=== PATIENT | male | born 1995 | race Caucasian/White ===

== ENCOUNTER 2017-05-24 11:25 | Emergency (ER) | payer SELFPAY ==
[2017-05-24] MEDS ORDERED: Ketorolac 30 MG/ML SDV IVPUSH ONE (11:38)
[2017-05-24] MEDS ORDERED: Ondansetron 4 MG/2 ML SDV IVPUSH ONE (11:38)
[2017-05-24] MEDS ORDERED: Sodium Chloride 0.9% 2.5 ML Syringe FLUSH PRN (11:38)
[2017-05-24] MEDS ORDERED: HYDROmorphone 2 MG/ML Syringe IVPUSH ONE (11:38)
[2017-05-24] MEDS ORDERED: Sodium Chloride 0.9% 10 ML Syringe FLUSH PRN (11:38)
[2017-05-24] MEDS ORDERED: Sodium Chloride 0.9% 1,000 ML IV ONE (11:38)
--- NOTE | 2017-05-24 11:42 | EDM.PDOC ---
ED HPI GENERAL MEDICAL PROBLEM - General Chief Complaint: Flank Pain Stated Complaint: LEFT SIDE ABDOMINAL PAIN Time Seen by Provider: 05/24/17 11:30 - History of Present Illness INITIAL COMMENTS - FREE TEXT/NARRATIVE: HISTORY AND PHYSICAL: History of present illness: The patient is a 22-year-old male without any GI or history and presents with complaints of left-sided abdominal pain/flank pain that started this morning after he woke up. According to the patient had a completely normal day yesterday with no abdominal issues no urinary issues no fevers or chills but he does state that he has had some sinus drainage and congestion. Patient says he woke at his usual time this morning and started experiencing the discomfort in the left lower abdominal area and now it's radiating to his flank. He had no hematuria or dysuria this morning. He has not had a bowel movement today but his bowel movement yesterday was normal. Patient has no testicular pain or swelling and denies STD risks. The patient describes the pain is deep aching and sharp at times and there is no right-sided pain. Patient did not take anything for the pain prior to coming here and he denies any recent trauma or strenuous activity. He has not been coughing or having any rib pain. The patient did have 3 episodes of vomiting prior to coming here which was clear consistent with the water he tried to drink and it was not black bloody or bilious Review of systems: As per history of present illness and below otherwise all systems reviewed and negative. Past medical history: As per history of present illness and as reviewed below otherwise noncontributory. Surgical history: As per history of present illness and as reviewed below otherwise noncontributory. Social history: No reported history of drug or alcohol abuse. Family history: As per history of present illness and as reviewed below otherwise noncontributory. Physical exam: Gen.: Well-developed overweight male who is nontoxic and moves easily in the ED but looks uncomfortable. Vital signs of the note by me. HEENT: Atraumatic, normocephalic, pupils reactive, negative for conjunctival pallor or scleral icterus, mucous membranes tacky, throat clear, neck supple, nontender, trachea midline. Lungs: Clear to auscultation, breath sounds equal bilaterally, chest nontender. Heart: S1S2, regular rate and rhythm no overt murmurs Abdomen: Soft, nondistended, nontender. The patient has no rebound or guarding but there is tympany on percussion of the upper abdomen. On palpation I cannot elicit the tenderness that the patient is experiencing but he does say that he feels some pressure. Negative for masses or hepatosplenomegaly. Negative for costovertebral tenderness. Pelvis: Stable nontender. Genitourinary: Deferred. Rectal: Deferred. Extremities: Atraumatic, negative for cords or calf pain. Neurovascular unremarkable. Neuro: Awake, alert, oriented. Cranial nerves II through XII unremarkable. Cerebellum unremarkable. Motor and sensory unremarkable throughout. Exam nonfocal. Diagnostics: CBC CMP lipase UA urine culture CT scan of the abdomen and pelvis Therapeutics: IV fluids Zofran Toradol Dilaudid Flomax urine strainers to patient Patient is sleeping when I went in to talk to him about his test results. He is aware of need to follow-up with our urologist and I given medications for pain nausea and Flomax. Advised him on reasons to return to the ED. Impression: Left distal ureteral stone Definitive disposition and diagnosis as appropriate pending reevaluation and review of above. Left Flank Pain Score (Numeric/FACES): 10 - Related Data Allergies Allergy/AdvReac Type Severity Reaction Status Date / Time cefaclor [From Ceclor] Allergy Other Verified 05/24/17 11:29 Penicillins Allergy Rash Verified 05/24/17 11:29 Home Meds: Home Meds Albuterol [Proventil Neb Soln] 0.63 mg NEB ASDIRECTED PRN 05/24/17 [History] Past Medical History Respiratory History: Reports: Asthma Social & Family History - Tobacco Use Smoking Status *Q: Current Every Day Smoker Years of Tobacco use: 7 Packs/Tins Daily: 0.5 - Caffeine Use Caffeine Use: Reports: Soda - Recreational Drug Use Recreational Drug Use: No ED ROS GENERAL - Review of Systems Review Of Systems: ROS reveals no pertinent complaints other than HPI. ED EXAM, GENERAL - Physical Exam Exam: See Below (See dictation) Course - Vital Signs Last Recorded V/S: Last Vital Signs Temp 36.0 C 05/24/17 12:00 Pulse 102 H 05/24/17 12:00 Resp 18 05/24/17 12:00 BP 148/64 H 05/24/17 12:00 Pulse Ox 97 05/24/17 12:00 - Orders/Labs/Meds Orders: Active Orders 24 hr Category Date Time Status Communication Order [RC] STAT Care 05/24/17 13:13 Ordered CULTURE URINE [RM] Stat Lab 05/24/17 11:55 Received Sodium Chloride 0.9% [Saline Flush] Med 05/24/17 11:38 Active 10 ml FLUSH ASDIRECTED PRN Sodium Chloride 0.9% [Saline Flush] Med 05/24/17 11:38 Active 2.5 ml FLUSH ASDIRECTED PRN Saline Lock Insert [OM.PC] Stat Oth 05/24/17 11:38 Ordered Medication Orders Sodium Chloride (Saline Flush) 10 ml FLUSH ASDIRECTED PRN PRN Reason: Keep Vein Open Sodium Chloride (Saline Flush) 2.5 ml FLUSH ASDIRECTED PRN PRN Reason: Keep Vein Open Labs: Laboratory Tests 05/24/17 05/24/17 05/24/17 Range/Units 11:45 11:45 11:55 WBC 11.77 H (4.0-11.0) K/uL RBC 4.98 (4.50-5.90) M/uL Hgb 14.7 (13.0-17.0) g/dL Hct 43.2 (38.0-50.0) % MCV 86.7 (80.0-98.0) fL MCH 29.5 (27.0-32.0) pg MCHC 34.0 (31.0-37.0) g/dL RDW Std Deviation 44.4 (28.0-62.0) fl RDW Coeff of Radha 14 (11.0-15.0) % Plt Count 217 (150-400) K/uL MPV 10.10 (7.40-12.00) fL Neut % (Auto) 85.3 H (48.0-80.0) % Lymph % (Auto) 9.2 L (16.0-40.0) % [place] % (Auto) 5.0 (0.0-15.0) % Eos % (Auto) 0.3 (0.0-7.0) % Baso % (Auto) 0.2 (0.0-1.5) % Neut # (Auto) 10.1 H (1.4-5.7) K/uL Lymph # (Auto) 1.1 (0.6-2.4) K/uL [place] # (Auto) 0.6 (0.0-0.8) K/uL Eos # (Auto) 0.0 (0.0-0.7) K/uL Baso # (Auto) 0.0 (0.0-0.1) K/uL Nucleated RBC % 0.0 /100WBC Nucleated RBCs # 0 K/uL Sodium 139 (136-146) mmol/L Potassium 4.2 (3.5-5.1) mmol/L Chloride 107 (98-110) mmol/L Carbon Dioxide 24 (21-31) mmol/L BUN 11 (6.0-23.0) mg/dL Creatinine 1.1 (0.6-1.5) mg/dL Est Cr Clr Drug Dosing 106.92 mL/min Estimated GFR (MDRD) > 60.0 ml/min Glucose 117 H (60-110) mg/dL Calcium 9.1 (8.8-10.8) mg/dL Total Bilirubin 0.4 (0.1-1.5) mg/dL AST 30 (5-40) IU/L ALT 46 (8-54) IU/L Alkaline Phosphatase 48 (40-150) Total Protein 6.9 (6.0-8.0) g/dL Albumin 4.2 (3.5-5.0) g/dL Globulin 2.7 (2.0-3.5) g/dL Albumin/Globulin Ratio 1.6 (1.3-2.8) Lipase 15 (7-80) U/L Urine Color YELLOW Urine Appearance CLEAR Urine pH 7.5 (5.0-8.0) Ur Specific [place] 1.015 (1.001-1.035) Urine Protein NEGATIVE (NEGATIVE) mg/dL Urine Glucose (UA) NEGATIVE (NEGATIVE) mg/dL Urine Ketones 40 H (NEGATIVE) mg/dL Urine Occult Blood SMALL H (NEGATIVE) Urine Nitrite NEGATIVE (NEGATIVE) Urine Bilirubin NEGATIVE (NEGATIVE) Urine Urobilinogen 0.2 (<2.0) EU/dL Ur Leukocyte Esterase NEGATIVE (NEGATIVE) Urine RBC 1-3 (0-2/HPF) Urine WBC 0-1 (0-5/HPF) Ur Epithelial Cells RARE (NONE-FEW) Urine Bacteria RARE (NEGATIVE) Meds: Medications Generic Name Dose Route Start Last Admin Trade Name Yakelin PRN Reason Stop Dose Admin Sodium Chloride 10 ml 05/24/17 11:38 Saline Flush FLUSH ASDIRECTED PRN Keep Vein Open Sodium Chloride 2.5 ml 05/24/17 11:38 Saline Flush FLUSH ASDIRECTED PRN Keep Vein Open Discontinued Medications Generic Name Dose Route Start Last Admin Trade Name Yakelin PRN Reason Stop Dose Admin Hydromorphone HCl 1 mg 05/24/17 11:38 05/24/17 12:00 Dilaudid IVPUSH 05/24/17 11:39 1 mg ONETIME ONE Administration Sodium Chloride 1,000 mls @ 999 mls/hr 05/24/17 11:38 05/24/17 11:55 Normal Saline IV 05/24/17 12:38 999 mls/hr STAT ONE Administration Ketorolac Tromethamine 30 mg 05/24/17 11:38 05/24/17 11:57 Toradol IVPUSH 05/24/17 11:39 30 mg ONETIME ONE Administration Ondansetron HCl 4 mg 05/24/17 11:38 05/24/17 11:55 Zofran IVPUSH 05/24/17 11:39 4 mg ONETIME ONE Administration Tamsulosin HCl 0.4 mg 05/24/17 13:14 Flomax PO 05/24/17 13:15 ONETIME ONE Departure - Departure Time of Disposition: 13:21 Disposition: Home, Self-Care 01 Condition: Good Clinical Impression: Ureterolithiasis - Discharge Information Referrals: PCP,None [Primary Care Provider] - Forms: ED Department Discharge Additional Instructions: The following information is given to patients seen in the emergency department who are being discharged to home. This information is to outline your options for follow-up care. We provide all patients seen in our emergency department with a follow-up referral. The need for follow-up, as well as the timing and circumstances, are variable depending upon the specifics of your emergency department visit. If you don't have a primary care physician on staff, we will provide you with a referral. We always advise you to contact your personal physician following an emergency department visit to inform them of the circumstance of the visit and for follow-up with them and/or the need for any referrals to a consulting specialist. The emergency department will also refer you to a specialist when appropriate. This referral assures that you have the opportunity for followup care with a specialist. All of these measure are taken in an effort to provide you with optimal care, which includes your followup. Under all circumstances we always encourage you to contact your private physician who remains a resource for coordinating your care. When calling for followup care, please make the office aware that this follow-up is from your recent emergency room visit. If for any reason you are refused follow-up, please contact the [facility] emergency department at and ask to speak to the emergency department charge nurse. [facility] Specialty care-Neurology Professional Building [address] [place] [address], [address] [place] [address] [facility] Primary care- Internal Medicine and Family [facility] [address] [place] [id number] Please push hydration as we discussed and use medications as prescribed. Strain all urine looking for the stone and please call and follow-up with our urologist using resources given to above. Please return to ER as needed and as discussed - My Orders Last 24 Hours: My Active Orders 05/24/17 11:38 Sodium Chloride 0.9% [Saline Flush] 10 ml FLUSH ASDIRECTED PRN Sodium Chloride 0.9% [Saline Flush] 2.5 ml FLUSH ASDIRECTED PRN Saline Lock Insert [OM.PC] Stat 05/24/17 11:55 CULTURE URINE [RM] Stat 05/24/17 13:13 Communication Order [RC] STAT - Assessment/Plan Last 24 Hours: My Active Orders 05/24/17 11:38 Sodium Chloride 0.9% [Saline Flush] 10 ml FLUSH ASDIRECTED PRN Sodium Chloride 0.9% [Saline Flush] 2.5 ml FLUSH ASDIRECTED PRN Saline Lock Insert [OM.PC] Stat 05/24/17 11:55 CULTURE URINE [RM] Stat 05/24/17 13:13 Communication Order [RC] STAT
[2017-05-24 12:02] VITALS: BP 148/64
[2017-05-24 12:25] LABS: CHLORIDE,CL 107 mmol/L (98-110); SODIUM,NA 139 mmol/L (136-146)
--- NOTE | 2017-05-24 13:10 | CT ---
CT of the abdomen and pelvis without contrast. HISTORY: Pain TECHNIQUE: Axial CT images were obtained of the abdomen and pelvis without contrast. Coronal and sagi ttal reconstructions obtained. FINDINGS: The lung bases are clear, no pleural effusion. The liver, spleen, adrenal glands, and pancreas appear unremarkable for noncontrast examination. The gallbladder appears normal. There is no bulky retroperitoneal lymphadenopathy. No abdominal ascites. There is a 2 mm nonobstructing stone within the distal left ureter with mild proximal hydronephrosis. The large and small bowel are normal in caliber without evidence of obstruction. The appendix appears normal. There is no bulky pelvic lymphadenopathy. No free fluid. No free air. The urinary bladder ap pears normal. The visualized osseous structures appear normal. IMPRESSION: 1. There is a 2 mm obstructing stone within the distal left ureter with moderate proximal hydronephro sis.
[2017-05-24] MEDS ORDERED: Tamsulosin 0.4 MG Cap.ER PO ONE (13:14)
== END 2017-05-24 13:41 | disposition home or self-care (01) ==
LOC: MW.ED 11:25
DX: N13.2 Hydronephrosis with renal and ureteral calculous obstruction (principal); F17.210 Nicotine dependence, cigarettes, uncomplicated; Z88.1 Allergy status to other antibiotic agents; Z88.0 Allergy status to penicillin
CPT/HCPCS: 74176; 80053; 81001; 83690; 85025; 87086; 96361; 96374; 96375; 99284; A9270; J1170; J1885; J2405; J7040; 99283